=== PATIENT | male | born 2005 | race Caucasian/White ===

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

== ENCOUNTER 2024-09-29 19:01 | Emergency (ER) | payer BC, SELFPAY ==
--- NOTE | 2024-09-29 19:14 | ED_ITS ---
HPI - Ear Problem General Chief complaint: Ear Stated complaint: ear inf Time Seen by Provider: 09/29/24 19:14 Source: patient Mode of arrival: ambulatory Limitations: no limitations History of Present Illness HPI Narrative: Vinicius is a 18-year-old male patient presenting to the clinic today with complaints of a possible left ear infection x2 days. He reports he has been recently swimming. Has not noticed any discharge coming from the ear. Denies any fevers, chills, body aches, or URI symptoms. Has not taken any medications to treat his symptoms. Related Data Allergies Allergy/AdvReac Type Severity Reaction Status Date / Time shellfish derived Allergy Severe Anaphylaxis Verified 09/29/24 19:43 shrimp Allergy Severe Anaphylaxis Verified 09/29/24 19:43 PMFSH Past Medical History Medical History No pertinent past medical history Surgical History Surgical History History of excision of pilonidal cyst exc complicated pilonidal cyst on 04/23/22 History of hernia repair Family History Family History Grandparent Diabetes mellitus Hypertension Family history of elevated blood lipids Family history of cardiovascular disease Family history of cardiac disorder Mother Hypertension Family history of hypothyroidism Father Asthma Other Acute myocardial infarction Heart disease Kidney disorder Social History Social History Smoking status: Former smoker Tobacco type: e-cigarettes/vaping Alcohol intake: never Substance use: never Substance use type: does not use Do You Feel Safe in your Home?: Yes Lack of Transportation: No Lack of Food: Never True Current Housing: I Have Housing Concerned About Future Housing: No Difficulty Paying Gas/Electric Bills: No Difficulty Paying for Meds: No Currently Unemployed: No Education: High School Diploma/GED Difficulty w/ Childcare or Family Care: No Living arrangements: with family Occupation/Education: student Gender identity (if verbalized by the patient): Male Spiritual care concerns: No Comments At the time of my signature, I reviewed and agree with the nursing past medical, surgical, social, and family history. There is no relevant family history pertinent to the patient complaint. Exam Narrative: General: Well-developed, well nourished, in no apparent distress Head: Normocephalic, atraumatic Eyes: Pupils equally round and reactive to light bilaterally, EOM intact, sclera and conjunctive clear, no discharge, lids normal Ears: Right TM intact and clear, right ear canal clear, no drainage, Left TM intact, bulging, red, left ear canal red, swollen, and tender palpation over the tragus and pulling of the pinna with some white exudate noted inside the left ear canal, grossly hearing normal. Nose: Nares patent, no discharge, no inflammation, no sinus tenderness. Mouth: Oropharynx without lesions or masses, good dentition, MMM. Neck: Supple, trachea midline, no enlargement of anterior or posterior cervical nodes, no thyroid masses or goiter palpable. Cardio: Regular rate and rhythm, s1 and s2 normal, no murmur appreciated. Resp: Clear to auscultation bilaterally anteriorly and posteriorly, no rhonchi, rales, wheezing or rubs Course Course Emergency Course: Portions of this record may have been created with voice recognition software. Level of Care: Express Care Visit Vital Signs Vital signs: Vital Signs Temperature 36.6 C 09/29/24 19:27 Pulse Rate 68 09/29/24 19:27 Respiratory Rate 18 09/29/24 19:27 Blood Pressure 144/80 H 09/29/24 19:27 Pulse Oximetry 98 09/29/24 19:27 Temperature 36.6 C 09/29/24 19:27 Pulse Rate 68 09/29/24 19:27 Respiratory Rate 18 09/29/24 19:27 Blood Pressure 144/80 H 09/29/24 19:27 Pulse Oximetry 98 09/29/24 19:27 Vital signs reviewed Medical Decision Making MDM Narrative Medical decision making narrative: At the time of visit patient is resting comfortably on the exam table. Patient appears to be nontoxic. Complaints of a possible left ear infection x2 days. He reports he has been recently swimming. Has not noticed any discharge coming from the ear. Denies any fevers, chills, body aches, or URI symptoms. Has not taken any medications to treat his symptoms. Left TM intact, bulging, red, left ear canal red, swollen, and tender palpation over the tragus and pulling of the pinna with some white exudate noted inside the left ear canal. Plan: I suspect patient has acute left otitis media and left otitis externa. Prescription for amoxicillin and ofloxacin ear drops was sent to the pharmacy. Supportive measures were discussed with the patient and they voiced understanding discharge instructions and agrees to treatment plan. Return precautions reviewed Differential Diagnosis Differential Diagnosis: Otitis media, otitis externa, eustachian tube dysfunction, cerumen impaction, upper respiratory infection, serous otitis Vital Signs Vital Signs: Vital Signs Temperature 36.6 C 09/29/24 19:27 Pulse Rate 68 09/29/24 19:27 Respiratory Rate 18 09/29/24 19:27 Blood Pressure 144/80 H 09/29/24 19:27 Pulse Oximetry 98 09/29/24 19:27 Temperature 36.6 C 09/29/24 19:27 Pulse Rate 68 09/29/24 19:27 Respiratory Rate 18 09/29/24 19:27 Blood Pressure 144/80 H 09/29/24 19:27 Pulse Oximetry 98 09/29/24 19:27 Discharge Plan Discharge Clinical Impression: Otitis media Qualifiers: Otitis media type: suppurative Chronicity: acute Laterality: left Recurrence: non-recurrent Spontaneous tympanic membrane rupture: without spontaneous rupture Qualified Code(s): H66.002 - Acute suppurative otitis media without spontaneous rupture of ear drum, left ear Otitis externa Qualifiers: Otitis externa type: diffuse Chronicity: acute Laterality: left Qualified Code(s): H60.312 - Diffuse otitis externa, left ear Patient Disposition: Home Condition: Stable Instructions: Antibiotic Form, Swimmer's Ear (ED), Ear Infection (ED) Additional Instructions: Take any prescribed medications only as directed,-ofloxacin and amoxicillin Tylenol/motrin as needed for pain May use heating pad to alleviate pain If you get recurrent ear infections it may be warranted to follow up with ENT. Follow up with your PCP in 3-5 days if symptoms persist. Patient Language: Armenian Prescriptions: New amoxicillin 875 mg tablet 875 mg PO Q12H 7 Days Qty: 14 0RF ofloxacin 0.3 % drops 5 drp otic (ear) BID 7 Days Qty: 5 0RF Follow-up/Referrals: Yoel,Saul Kendall DO [Primary Care Provider] - Time of Disposition: 19:34 Quality NIHSS Nursing Documentation ED NIHSS nursing documentation: reviewed/agree
[2024-09-29 19:27] VITALS: BP 144/80; PULSE 68; RESP 18; TEMP 36.6; O2SAT 98
== END 2024-09-29 19:37 | disposition home or self-care (01) ==
PROVIDERS: Emergency Provider Nurse Practitioner Family; PCP Family Medicine
DX: H66.002 Acute suppurative otitis media without spontaneous rupture of ear drum, left ear (principal); H60.312 Diffuse otitis externa, left ear; Z87.891 Personal history of nicotine dependence
CPT/HCPCS: 99213; G0463